=== PATIENT | male | born 1960 | race Caucasian/White ===

== ENCOUNTER 2025-03-03 13:29 | Emergency (ER) | payer OTHER, SELFPAY ==
[2025-03-03 13:44] VITALS: BP 115/70; PULSE 74; RESP 18; TEMP 36.3; O2SAT 98
--- NOTE | 2025-03-03 14:15 | ED.BACK ---
HPI - Back Pain/Injury General Chief Complaint: Back Pain/Injury Stated Complaint: Back Pain Time Seen by Provider: 03/03/25 14:16 Source: patient Mode of arrival: wheelchair Limitations: no limitations History of Present Illness [facility] Narrative: here for back pain Related Data Home Medications ?Medication ?Instructions ?Recorded ?Confirmed ?Last Taken ?Type citalopram 20 mg tablet mg 03/03/25 Unknown History Allergies Allergy/AdvReac Type Severity Reaction Status Date / Time codeine Allergy Rash Verified 03/03/25 14:01 Review of Systems Review of Systems: CONSTITUTIONAL: Denies fever, chills, or sweats. EYES: Denies visual changes, redness, or discharge. ENT: Denies rhinorrhea, congestion, sore throat, or otalgia. CARDIOVASCULAR: Denies chest pain, palpitations, or edema. RESPIRATORY: Denies cough or dyspnea. GASTROINTESTINAL: Denies abdominal pain, nausea, vomiting, or diarrhea. GENITOURINARY: Denies dysuria or hematuria. SKIN: Denies rash or itching. MUSCULOSKELETAL: Denies back pain, joint pain, or myalgia. NEUROLOGIC: Denies headache, numbness, or weakness. PSYCHIATRIC: Denies anxiety or depression. All other systems reviewed are negative, except as documented in HPI. PMFSH Comments reviewed Exam Narrative: GENERAL: This is a well-nourished, well-developed patient, in no apparent distress. HEAD: normocephalic, atraumatic. EYES: PERRL. Sclera clear/white. Vision is grossly intact. EARS: External ears normal, auditory canals clear and without drainage, TMs normal without perforation. Hearing grossly intact. NOSE: External nose normal with no obvious nasal discharge, nares without redness, no rhinorrhea. THROAT: Mucous membranes moist, posterior pharynx clear. NECK: Neck supple, non-tender without lymphadenopathy, masses or thyromegaly. CARDIOVASCULAR: Regular rate and rhythm without murmurs, gallops, or rubs. RESPIRATORY: Clear to auscultation. Breath sounds equal bilaterally. No wheezes, rales, or rhonchi. GASTROINTESTINAL: Abdomen soft, non-tender, nondistended. Bowel sounds are active. No hepato-splenomegaly, or palpable masses. No guarding. SKIN: warm, Dry, intact with no suspicious lesions or rash, good texture and turgor. NEURO: awake, alert, and oriented to person, place and time. There were no obvious focal neurologic abnormalities. EXTREMITIES: No joint tenderness, effusion, or edema noted. No calf tenderness. Negative Homans sign bilaterally. BACK: Nontender without deformity. No CVA tenderness. Course Course Level of Care: Express Care Visit Vital Signs Vital signs: Vital Signs Temperature 36.3 C L 03/03/25 13:44 Pulse Rate 74 03/03/25 13:44 Respiratory Rate 18 03/03/25 13:44 Blood Pressure 115/70 03/03/25 13:44 Pulse Oximetry 98 03/03/25 13:44 Oxygen Delivery Room Air 03/03/25 13:44 Temperature 36.3 C L 03/03/25 13:44 Pulse Rate 74 03/03/25 13:44 Respiratory Rate 18 03/03/25 13:44 Blood Pressure 115/70 03/03/25 13:44 Pulse Oximetry 98 03/03/25 13:44 Oxygen Delivery Room Air 03/03/25 13:44 reviewed Discharge Plan Discharge Clinical Impression: Strain of lumbar region Qualifiers: Encounter type: initial encounter Qualified Code(s): S39.012A - Strain of muscle, fascia and tendon of lower back, initial encounter Sciatica Qualifiers: Laterality: left Qualified Code(s): M54.32 - Sciatica, left side Patient Disposition: Home Condition: Stable Instructions: Antibiotic Form, Sciatica (ED), Muscle Spasm (ED), Lower Back Exercises (ED) Additional Instructions: You were diagnosed with low back pain and left sciatica. You were treated today with Ketorolac and Methylprednisolone in the muscle. Take medications as prescribed. Follow-up printed instructions Follow-up with primary care provider Go to the emergency room for any worsening symptoms or concerns. Patient Language: Danish Prescriptions: New cyclobenzaprine 10 mg tablet 10 mg PO TID PRN (Reason: muscle spasm) Qty: 15 0RF ibuprofen 800 mg tablet 800 mg PO TID PRN (Reason: pain) Qty: 15 0RF Rx Instructions: Start on 03/04/2025 No Action citalopram 20 mg tablet Follow-up/Referrals: PHYSICIAN,[employer]SC[employer]ER [Primary Care Provider] - Time of Disposition: 14:46
[2025-03-03] MEDS: methylPREDNISolone SOD SUCC 125 MG VIAL IM (15:03)
[2025-03-03] MEDS: KETOROLAC (*BKC) 60 MG/2 ML VIAL IM (15:04)
== END 2025-03-03 15:15 | disposition home or self-care (01) ==
PROVIDERS: Emergency Provider Nurse Practitioner
DX: S39.012A Strain of muscle, fascia and tendon of lower back, initial encounter (principal); X58.XXXA Exposure to other specified factors, initial encounter; M54.32 Sciatica, left side
CPT/HCPCS: 96372; 99214; G0463; J1885; J2919